=== PATIENT | female | born 1985 | race Caucasian/White ===

== ENCOUNTER 2017-09-22 11:21 | Emergency (ER) | payer OTHER ==
[~2017-09-22] VITALS: Ht 160 cm; Wt 97.5 kg
[2017-09-23] MEDS ORDERED: MEDROLPACK PO (15:23)
[2017-09-23] MEDS ORDERED: DICLOFENAC SODI50 MG PO (15:23)
[2017-09-23] MEDS ORDERED: DIAZEPAM10 MG PO (15:50)
== END 2017-09-23 16:17 | disposition home or self-care (01) ==
LOC: ER 11:21
DX: S34.21XA Injury of nerve root of lumbar spine, initial encounter (principal); S34.4XXA Injury of lumbosacral plexus, initial encounter; M51.36 Other intervertebral disc degeneration, lumbar region; M51.37 Other intervertebral disc degeneration, lumbosacral region; S39.012S Strain of muscle, fascia and tendon of lower back, sequela; W01.0XXS Fall on same level from slipping, tripping and stumbling without subsequent striking against object, sequela